=== PATIENT | female | born 1965 | race Caucasian/White ===

== ENCOUNTER 2020-07-30 19:49 | Inpatient (IN) | payer BC ==
[~2020-07-30] VITALS: Ht 170.2 cm; Wt 93.4 kg
[2020-07-30] MEDS ORDERED: heparin 25,000 UNIT/250ml bag 250 ML IV SCH ×2 (20:00→22:55)
[2020-07-30] MEDS ORDERED: normal saline 1000ML IV soln IVB ONE (20:00)
[2020-07-30] MEDS ORDERED: normal saline 1000ml 1,000 ML IV ONE (20:00)
[2020-07-30] MEDS ORDERED: heparin 10,000 units/1 ML INJ IV PRN (20:10)
[2020-07-30] MEDS ORDERED: midazolam 2 mg/2 ml injection ONE ×2 (21:16→22:32)
[2020-07-30] MEDS ORDERED: fentaNYL/PF 50MCG/1 ML 2ML syringe ONE ×2 (21:16→22:32)
[2020-07-30] MEDS ORDERED: LIDOcaine 1%/PF 5ML 10 MG/ML VIAL ONE (21:16)
[2020-07-30] MEDS: tPA-cathflo 2mg/2ml IV flush 4 MG in normal saline 100ml IV soln 100 ML ICATH SCH (21:25)
[2020-07-30 21:28] LABS: BASOPHILS # (AUTO) 0.1 X10'3 (0-0.2); BASOPHILS % (AUTO) 0.6 % (0-1); EOSINOPHILS # (AUTO) 0.2 X10'3 (0-0.9); EOSINOPHILS % (AUTO) 1.8 % (0-6); HEMATOCRIT 47.2 % (35.0-45.0); HEMOGLOBIN 16.3 g/dl (12.0-16.0); LYMPHOCYTES # (AUTO) 3.6 X10'3 (1.1-4.8); LYMPHOCYTES % (AUTO) 33.9 % (21-51); MEAN CORPUSCULAR HEMOGLOBIN 32.6 PG (27.0-31.0); MEAN CORPUSCULAR HGB CONC 34.6 g/dL (33.0-36.5); MEAN CORPUSCULAR VOLUME 94.4 FL (78-98); MEAN PLATELET VOLUME 9.2 FL (7.4-10.4); MONOCYTES # (AUTO) 0.5 X10'3 (0-0.9); MONOCYTES % (AUTO) 4.5 % (2-12); NEUTROPHILS # (AUTO) 6.2 X10'3 (1.8-7.7); NEUTROPHILS % (AUTO) 59.2 % (42-75); PLATELET COUNT 179 X10'3 (140-440); RED CELL DISTRIBUTION WIDTH 12.3 % (11.5-14.5); WHITE BLOOD COUNT 10.5 X10'3 (4.5-11.0)
[2020-07-30 21:36] LABS: PARTIAL THROMBOPLASTIN TIME 29 SECONDS (22-32)
[2020-07-30 21:38] LABS: ALANINE AMINOTRANSFERASE 36 U/L (12-78); ALBUMIN 3.7 G/DL (3.4-5.0); ALKALINE PHOSPHATASE 115 IU/L (46-116); ANION GAP 12 (8-16); ASPARTATE AMINO TRANSFERASE 28 U/L (10-37); BILIRUBIN,TOTAL 0.6 MG/DL (0.1-1.0); BLOOD UREA NITROGEN 14 MG/DL (7-18); BUN/CREATININE RATIO 18.9 (6.6-38.0); CALCIUM 8.7 MG/DL (8.5-10.1); CHLORIDE 101 MMOL/L (99-107); CREATININE 0.74 MG/DL (0.40-0.90); GLUCOSE 305 MG/DL (70-104); POTASSIUM 3.9 MMOL/L (3.5-5.1); SODIUM 135 MMOL/L (135-145); TOTAL CARBON DIOXIDE 21.6 MMOL/L (24-32); TOTAL PROTEIN 7.4 G/DL (6.4-8.2); eGFR 81 ML/MIN
[2020-07-30 21:45] LABS: MAGNESIUM 1.9 MG/DL (1.5-2.4)
[2020-07-30] MEDS ORDERED: heparin 1,000unit/ml 10ml vial 10 ML ONE (22:00)
[2020-07-30] MEDS ORDERED: iohexol 300mg/ml 100ml inj. ONE (22:00)
[2020-07-30] MEDS ORDERED: heparin 1,000 UNITS/NS 500ml 500 ML ONE (22:00)
[2020-07-30] MEDS ORDERED: heparin 25,000 UNIT/250ml bag 250 ML IV ONE (22:01)
[2020-07-30 23:30] VITALS: BP 134/86
[2020-07-30] MEDS ORDERED: morphine 2 MG/ML inj. syringe IV PRN (23:30)
[2020-07-30] MEDS ORDERED: acetaminophen 325mg tablet PO PRN ×2 (23:30)
[2020-07-30] MEDS ORDERED: potassium Cl 20 mEq SR tablet PO PRN (23:30)
[2020-07-30] MEDS ORDERED: HYDROcodone/acetaminophen 5mg/325mg tablet PO PRN (23:30)
[2020-07-30] MEDS ORDERED: morphine 4 MG/ML inj SYRINge IV PRN (23:30)
[2020-07-30] MEDS ORDERED: ondansetron/PF 4mg/2ml inj IV PRN (23:30)
[2020-07-30] MEDS: K, MAG and/or Phos replacement - Verify level? MC SCH (23:30)
[2020-07-30] MEDS ORDERED: potassium CL 10mEq/100ml bag 100 ML IV PRN ×2 (23:30)
--- NOTE | 2020-07-30 23:30 | NUR ---
Patient in room ICU 2043. I have received report from IR RN and had the opportunity to ask questions and assume patient care.
[2020-07-31] VITALS (24 sets, daily range): BP systolic 104–133; BP diastolic 62–89
[2020-07-31] MEDS: normal saline 1000ml 1,000 ML IV SCH ×2 (00:58→11:08)
[2020-07-31] MEDS: tPA-cathflo 2mg/2ml IV flush 4 MG in normal saline 100ml IV soln 100 ML ICATH SCH ×3 (02:03→09:25)
[2020-07-31] MEDS ORDERED: NO HOME MEDS (02:52)
[2020-07-31 02:55] LABS: BASOPHILS # (AUTO) 0.1 X10'3 (0-0.2); HEMOGLOBIN 14.6 g/dl (12.0-16.0); LYMPHOCYTES # (AUTO) 4.6 X10'3 (1.1-4.8); MONOCYTES # (AUTO) 0.4 X10'3 (0-0.9); PLATELET COUNT 126 X10'3 (140-440); WHITE BLOOD COUNT 9.3 X10'3 (4.5-11.0)
[2020-07-31 02:57] LABS: EOSINOPHILS # (AUTO) 0.2 X10'3 (0-0.9); EOSINOPHILS % (AUTO) 1.8 % (0-6); LYMPHOCYTES % (AUTO) 49.9 % (21-51); MEAN CORPUSCULAR HEMOGLOBIN 32.5 PG (27.0-31.0); MEAN CORPUSCULAR VOLUME 95.7 FL (78-98); MEAN PLATELET VOLUME 8.9 FL (7.4-10.4); MONOCYTES % (AUTO) 4.5 % (2-12); NEUTROPHILS % (AUTO) 42.8 % (42-75); RED CELL DISTRIBUTION WIDTH 12.4 % (11.5-14.5)
[2020-07-31 02:59] LABS: ALANINE AMINOTRANSFERASE 29 U/L (12-78); ALKALINE PHOSPHATASE 94 IU/L (46-116); ANION GAP 10 (8-16); ASPARTATE AMINO TRANSFERASE 13 U/L (10-37); BILIRUBIN,TOTAL 0.5 MG/DL (0.1-1.0); BLOOD UREA NITROGEN 14 MG/DL (7-18); BUN/CREATININE RATIO 21.9 (6.6-38.0); CALCIUM 7.7 MG/DL (8.5-10.1); CHLORIDE 105 MMOL/L (99-107); CREATININE 0.64 MG/DL (0.40-0.90); GLUCOSE 266 MG/DL (70-104); MAGNESIUM 1.8 MG/DL (1.5-2.4); PHOSPHORUS 3.5 MG/DL (2.3-4.5); POTASSIUM 3.4 MMOL/L (3.5-5.1); SODIUM 137 MMOL/L (135-145); TOTAL CARBON DIOXIDE 22.1 MMOL/L (24-32); TOTAL PROTEIN 5.9 G/DL (6.4-8.2); eGFR > 90 ML/MIN
[2020-07-31 03:47] LABS: HEMOGLOBIN A1C 10.8 % (4.5-6.2)
--- NOTE | 2020-07-31 06:30 | NUR ---
Patient in room ICU 2043. I have received report from Sandra QUINTANILLA and had the opportunity to ask questions and assume patient care.
--- NOTE | 2020-07-31 06:57 | NUR ---
Problems reprioritized. Patient report given, questions answered & plan of care reviewed with Kellie QUINTANILLA.
[2020-07-31] MEDS: K, MAG and/or Phos replacement - Verify level? MC SCH (08:00)
--- NOTE | 2020-07-31 08:00 | NUR ---
patient blood sugar 211 patient refused to have any insulin states that she does not need it as she knows what she needs to do to get her blood sugar under control
[2020-07-31 09:03] LABS: BASOPHILS % (AUTO) 0.4 % (0-1); EOSINOPHILS # (AUTO) 0.2 X10'3 (0-0.9); EOSINOPHILS % (AUTO) 2.6 % (0-6); HEMATOCRIT 33.1 % (35.0-45.0); HEMOGLOBIN 11.1 g/dl (12.0-16.0); LYMPHOCYTES # (AUTO) 2.5 X10'3 (1.1-4.8); LYMPHOCYTES % (AUTO) 42.2 % (21-51); MEAN CORPUSCULAR HEMOGLOBIN 32.3 PG (27.0-31.0); MEAN CORPUSCULAR HGB CONC 33.7 g/dL (33.0-36.5); MEAN CORPUSCULAR VOLUME 95.9 FL (78-98); MEAN PLATELET VOLUME 8.7 FL (7.4-10.4); MONOCYTES # (AUTO) 0.3 X10'3 (0-0.9); MONOCYTES % (AUTO) 5.3 % (2-12); NEUTROPHILS % (AUTO) 49.5 % (42-75); PLATELET COUNT 115 X10'3 (140-440); RED BLOOD COUNT 3.45 X10'6 (4.20-5.60); RED CELL DISTRIBUTION WIDTH 12.7 % (11.5-14.5)
[2020-07-31] MEDS ORDERED: heparin 10,000 units/1 ML INJ IV PRN (11:25)
[2020-07-31] MEDS ORDERED: heparin 10,000 units/1 ML INJ IV ONE (11:25)
[2020-07-31] MEDS: heparin 25,000 UNIT/250ml bag 250 ML IV SCH ×2 (12:24→20:58)
[2020-07-31] MEDS: lactose-reduced food (Ensure Enlive) - 237ml bottle PO SCH ×2 (13:00→18:00)
--- NOTE | 2020-07-31 13:45 | NUR ---
Introducer removed, cannula intact no bleeding or hematoma
--- NOTE | 2020-07-31 14:00 | NUR ---
patients blood sugar 275 patient again refused insulin to cover the blood sugar
--- NOTE | 2020-07-31 15:31 | NUR ---
DM consult, A1c 10.6%, spoke with bedside RN who reports pt initially denied history of diabetes then stated that she was prescribed metformin in the past however stopped taking d/t GI symptoms, currently cares for her who has stage IV CA, pt currently also refusing insulin here. DANISH met at bedside and given DM education handout. Pt declined verbal review. Pt appears very preoccupied with 's health. Stated that she knows everything I could tell her and knows exactly what to do for her diabetes. Encouraged patient to consider discussing her to PCP and taking the metformin, however pt said the metformin was not for diabetes and was for her energy levels instead. Encouraged pt to accept medication from nurse, is worried insulin will cause diarrhea, attempted to assure pt that this is not a side effect, pt replied "you don't know that." Will follow. Addendum: 07/31/20 at [address] Amended: Links added.
--- NOTE | 2020-07-31 18:06 | NUR ---
Problems reprioritized. Patient report given, questions answered & plan of care reviewed with Mirta QUINTANILLA.
--- NOTE | 2020-07-31 18:25 | NUR ---
Patient in room ICU 2043. I have received report from Kellie QUINTANILLA and had the opportunity to ask questions and assume patient care.
[2020-07-31] MEDS ORDERED: warfarin 5mg tablet PO ONE (21:00)
--- NOTE | 2020-07-31 21:00 | NUR ---
Spoke with Zion Cuadra regarding warfarin order. Dr Vanegas's progress note from today states that warfarin would not be given and lovenox would be ordered instead. Warfarin non-administered as patient remains on a heparin gtt overnight. Will continue to monitor patient.
[2020-08-01] VITALS (15 sets, daily range): BP systolic 101–140; BP diastolic 71–90
[2020-08-01 05:22] LABS: BASOPHILS % (AUTO) 0.6 % (0-1); EOSINOPHILS # (AUTO) 0.2 X10'3 (0-0.9); EOSINOPHILS % (AUTO) 2.9 % (0-6); HEMATOCRIT 38.2 % (35.0-45.0); HEMOGLOBIN 12.9 g/dl (12.0-16.0); LYMPHOCYTES # (AUTO) 4.1 X10'3 (1.1-4.8); LYMPHOCYTES % (AUTO) 51.8 % (21-51); MEAN CORPUSCULAR HEMOGLOBIN 32.4 PG (27.0-31.0); MEAN CORPUSCULAR HGB CONC 33.9 g/dL (33.0-36.5); MEAN CORPUSCULAR VOLUME 95.6 FL (78-98); MEAN PLATELET VOLUME 8.8 FL (7.4-10.4); MONOCYTES # (AUTO) 0.3 X10'3 (0-0.9); MONOCYTES % (AUTO) 4.1 % (2-12); NEUTROPHILS # (AUTO) 3.2 X10'3 (1.8-7.7); NEUTROPHILS % (AUTO) 40.6 % (42-75); PLATELET COUNT 144 X10'3 (140-440); RED BLOOD COUNT 3.99 X10'6 (4.20-5.60); RED CELL DISTRIBUTION WIDTH 12.6 % (11.5-14.5); WHITE BLOOD COUNT 7.9 X10'3 (4.5-11.0)
[2020-08-01 05:29] LABS: ALANINE AMINOTRANSFERASE 24 U/L (12-78); ALBUMIN 2.5 G/DL (3.4-5.0); ALBUMIN/GLOBULIN RATIO 0.9 (1.1-1.5); ALKALINE PHOSPHATASE 83 IU/L (46-116); ANION GAP 7 (8-16); ASPARTATE AMINO TRANSFERASE 21 U/L (10-37); BILIRUBIN,TOTAL 0.4 MG/DL (0.1-1.0); BLOOD UREA NITROGEN 8 MG/DL (7-18); BUN/CREATININE RATIO 14.8 (6.6-38.0); CALCIUM 7.2 MG/DL (8.5-10.1); CHLORIDE 110 MMOL/L (99-107); CREATININE 0.54 MG/DL (0.40-0.90); GLUCOSE 233 MG/DL (70-104); MAGNESIUM 1.5 MG/DL (1.5-2.4); PHOSPHORUS 3.9 MG/DL (2.3-4.5); SODIUM 142 MMOL/L (135-145); TOTAL CARBON DIOXIDE 25.4 MMOL/L (24-32); TOTAL PROTEIN 5.2 G/DL (6.4-8.2); eGFR > 90 ML/MIN
[2020-08-01] MEDS: potassium Cl 20 mEq SR tablet PO PRN ×2 (05:43→10:08)
--- NOTE | 2020-08-01 06:48 | NUR ---
Patient in room ICU 2043. I have received report from SOCORRO Kirby and had the opportunity to ask questions and assume patient care.
[2020-08-01] MEDS: lactose-reduced food (Ensure Enlive) - 237ml bottle PO SCH ×2 (08:00→13:00)
[2020-08-01] MEDS: K, MAG and/or Phos replacement - Verify level? MC SCH (08:11)
--- NOTE | 2020-08-01 08:17 | NUR ---
Pt refused blood glucose check this morning, and states she will not take insulin while she's here at the hospital. Will continue to monitor.
--- NOTE | 2020-08-01 12:02 | NUR ---
Pt refused blood sugar check again for her lunchtime check. Will continue to monitor.
[2020-08-01] MEDS ORDERED: warfarin 1mg tablet PO PRN (13:10)
[2020-08-01] MEDS ORDERED: WARF-55 PO (13:22)
[2020-08-01] MEDS ORDERED: ENOX40SY7 SQ (14:05)
[2020-08-01] MEDS ORDERED: WARF1TAB83 PO (14:05)
--- NOTE | 2020-08-01 15:23 | NUR ---
Pt stable for discharge per MD order. All discharge instructions reviewed with patient and all questions answered. New prescriptions called into [facility] pharmacy in [place], [place], and followup appointment made with PCP at [facility] for 08/02/20 at 0730. Pt states she understands to comply with daily lab draws and medication titration instructions from her PCP during her warfarin administration over the next three months. PIV discontined, cannula intact. Bedside monitoring discontinued, charge nurse notified. All belongings collected and sent with patient. Patient picked up in private vehicle by family member, wheeled to vehicle by staff.
[2020-08-01] MEDS ORDERED: warfarin 5mg tablet PO ONE (21:00)
== END 2020-08-01 15:48 | disposition home or self-care (01) | DRG 299 ==
LOC: ER 19:50 → ICU 2S 21:44
PROVIDERS: ADMIT Internal Medicine Critical Care Medicine; ATTEND Internal Medicine Critical Care Medicine
PROC: 3E06317 Introduction of Other Thrombolytic into Central Artery, Percutaneous Approach (ICD-10-PCS; principal; 2020-07-30)
PROC: B31T1ZZ Fluoroscopy of Left Pulmonary Artery using Low Osmolar Contrast (ICD-10-PCS; 2020-07-30)
PROC: B31S1ZZ Fluoroscopy of Right Pulmonary Artery using Low Osmolar Contrast (ICD-10-PCS; 2020-07-30)
DX: I82.411 Acute embolism and thrombosis of right femoral vein (principal); I26.99 Other pulmonary embolism without acute cor pulmonale; D68.0 Von Willebrand disease; I82.462 Acute embolism and thrombosis of left calf muscular vein; I82.562 Chronic embolism and thrombosis of left calf muscular vein; E11.65 Type 2 diabetes mellitus with hyperglycemia; R09.02 Hypoxemia; G89.29 Other chronic pain; M54.9 Dorsalgia, unspecified
CPT/HCPCS: 36013; 36415; 37212; 71045; 76937; 80053; 82948; 83036; 83735; 83880; 84100; 84484; 85025; 85240; 85384; 85610; 85730; 86885; 86900; 86901; 87081; 93005; 93306; 93308; 93970; 96365; 96375; 99152; 99153; 99291; C1729; C1769; C1894; G0378; J1644; J2250; J2997; J3010; J7030; Q9967